=== PATIENT | female | born 1955 | race Two or more races ===

== ENCOUNTER 2017-10-27 10:35 | Inpatient (IN) | payer OTHER ==
[~2017-10-27] VITALS: Ht 157.5 cm; Wt 42.6 kg
[2017-11-07] MEDS ORDERED: MYAMBUTOL400 MG PO (10:37)
[2017-11-07] MEDS ORDERED: BENZONATATE100 MG PO (10:37)
[2017-11-07] MEDS ORDERED: ZITHROMAX500 MG PO (10:37)
[2017-11-07] MEDS ORDERED: RIFAMPIN300 MG PO (10:37)
[2017-11-07] MEDS ORDERED: XOPENEX0.63 MG/3 IH (10:37)
[2017-11-07] MEDS ORDERED: Tussi-Organidin Dm-S PO (10:37)
== END 2017-11-07 14:09 | disposition home or self-care (01) | DRG 871 ==
LOC: ER 10:35 → SURH 20:56
PROC: 3E0F7GC Introduction of Other Therapeutic Substance into Respiratory Tract, Via Natural or Artificial Opening (ICD-10-PCS; principal; 2017-10-27)
PROC: 8E0ZXY6 Isolation (ICD-10-PCS; 2017-10-27)
PROC: BB24ZZZ Computerized Tomography (CT Scan) of Bilateral Lungs (ICD-10-PCS; 2017-10-28)
PROC: B246ZZZ Ultrasonography of Right and Left Heart (ICD-10-PCS; 2017-11-05)
DX: A41.9 Sepsis, unspecified organism (principal); J09.X1 Influenza due to identified novel influenza A virus with pneumonia; J18.8 Other pneumonia, unspecified organism; J44.1 Chronic obstructive pulmonary disease with (acute) exacerbation; A31.0 Pulmonary mycobacterial infection; R09.02 Hypoxemia; I27.29 Other secondary pulmonary hypertension; Z85.3 Personal history of malignant neoplasm of breast

== ENCOUNTER 2017-11-16 13:15 | Inpatient (IN) | payer OTHER ==
[~2017-11-16] VITALS: Ht 152.4 cm; Wt 43.1 kg
[~2017-11-16 13:15] MED LIST: BENZONATATE100 MG PO; MYAMBUTOL400 MG PO; RIFAMPIN300 MG PO; Tussi-Organidin Dm-S PO; XOPENEX0.63 MG/3 IH; ZITHROMAX500 MG PO
[2017-11-19] MEDS ORDERED: SILTUSSIN DM C118 ML BC (14:34)
[2017-11-23] MEDS ORDERED: LEVAQUIN750 MG PO (11:20)
[2017-11-23] MEDS ORDERED: XOPENEX0.63 MG/3 IH (11:22)
== END 2017-11-23 14:29 | disposition home or self-care (01) | DRG 871 ==
LOC: ER 13:15 → ICU-2 16:17 → SEC-K 11-20 07:45 → SURH 11-20 11:20 → SEC-K 11-20 11:20 → MEDJ 11-20 15:23
PROC: 4A033R1 Measurement of Arterial Saturation, Peripheral, Percutaneous Approach (ICD-10-PCS; principal; 2017-11-16)
PROC: 3E0F7GC Introduction of Other Therapeutic Substance into Respiratory Tract, Via Natural or Artificial Opening (ICD-10-PCS; 2017-11-16)
PROC: 8E0ZXY6 Isolation (ICD-10-PCS; 2017-11-16)
PROC: 5A09457 Assistance with Respiratory Ventilation, 24-96 Consecutive Hours, Continuous Positive Airway Pressure (ICD-10-PCS; 2017-11-16)
PROC: 3E0336Z Introduction of Nutritional Substance into Peripheral Vein, Percutaneous Approach (ICD-10-PCS; 2017-11-17)
DX: A41.9 Sepsis, unspecified organism (principal); J16.8 Pneumonia due to other specified infectious organisms; J96.01 Acute respiratory failure with hypoxia; J44.1 Chronic obstructive pulmonary disease with (acute) exacerbation; B37.0 Candidal stomatitis; A31.0 Pulmonary mycobacterial infection; B96.5 Pseudomonas (aeruginosa) (mallei) (pseudomallei) as the cause of diseases classified elsewhere

== ENCOUNTER 2018-12-21 13:04 | Outpatient (CLI) | payer OTHER ==
[~2018-12-21 13:04] MED LIST changes: +LEVAQUIN750 MG PO; +SILTUSSIN DM C118 ML BC
== END 2018-12-21 13:18 | disposition home or self-care (01) ==
LOC: RAD 501 13:04
DX: M17.11 Unilateral primary osteoarthritis, right knee (principal); M17.12 Unilateral primary osteoarthritis, left knee; M16.11 Unilateral primary osteoarthritis, right hip; M16.12 Unilateral primary osteoarthritis, left hip

== ENCOUNTER 2021-03-02 13:03 | Outpatient (CLI) | payer OTHER | END 2021-03-02 13:04 | disposition home or self-care (01) | LOC: NUCLEAR 13:03 | PROVIDERS: ATTEND Internal Medicine Pulmonary Disease | DX: A31.9 Mycobacterial infection, unspecified (principal); J44.9 Chronic obstructive pulmonary disease, unspecified | CPT/HCPCS: 78802; A9556 ==

== ENCOUNTER 2023-06-11 18:29 | Inpatient (IN) | payer OTHER ==
[~2023-06-11] VITALS: Ht 157.5 cm; Wt 40.8 kg
[2023-06-14] MEDS ORDERED: STIOLTO RESPIMAT4 GM (08:25)
== END 2023-06-21 18:58 | disposition home or self-care (01) | DRG 190 ==
LOC: ER 18:29 → MEDJ 06-12 00:10
PROVIDERS: General Practice; ADMIT Internal Medicine; ATTEND Internal Medicine
PROC: BB24YZZ Computerized Tomography (CT Scan) of Bilateral Lungs using Other Contrast (ICD-10-PCS; 2023-06-11)
PROC: 8E0ZXY6 Isolation (ICD-10-PCS; principal; 2023-06-12)
PROC: 3E0F7GC Introduction of Other Therapeutic Substance into Respiratory Tract, Via Natural or Artificial Opening (ICD-10-PCS; 2023-06-12)
PROC: 3E0F7SF Introduction of Other Gas into Respiratory Tract, Via Natural or Artificial Opening (ICD-10-PCS; 2023-06-12)
DX: J44.1 Chronic obstructive pulmonary disease with (acute) exacerbation (principal); J18.9 Pneumonia, unspecified organism; A31.0 Pulmonary mycobacterial infection; R09.02 Hypoxemia; Z85.3 Personal history of malignant neoplasm of breast; Z87.891 Personal history of nicotine dependence

== ENCOUNTER 2023-10-24 20:40 | Inpatient (IN) | payer OTHER ==
[~2023-10-24] VITALS: Ht 157.5 cm; Wt 89.8 kg
[~2023-10-24 20:40] MED LIST changes: +STIOLTO RESPIMAT4 GM
[2023-10-24] MEDS ORDERED: STIOLTO RESPIMAT4 GM (22:20)
[2023-10-25 00:16] LABS: HEMATOCRIT 40.2 % (36.0-45.00); MEAN CELL VOLUME 92.9 fL (80.00-100.00); MEAN CORPUSCULAR HGB CONC 32.3 g/dl (32.0-36.0); PLATELET COUNT 420 K/uL (150-450); RED BLOOD COUNT 4.33 M/uL (4.00-6.00); RED CELL DISTRIBUTION WIDTH 15.2 % (11.5-14.5)
[2023-10-25 00:18] LABS: URINE BILIRRUBIN Negative (NEGATIVE); URINE BLOOD Negative; URINE COLOR Yellow; URINE GLUCOSE Negative (NEGATIVE); URINE LEUKOCYTE Small; URINE NITRATE Negative; URINE PROTEIN Trace (NEGATIVE)
[2023-10-25 00:22] LABS: URINE BACTERIA 23.9 uL (0.0-1933); URINE EPITHELIAL CELLS 6.1 uL (0.0-38.8); URINE RBC 6.4 uL (0.0-20.8); URINE WBC 47.1 uL (0.0-23.2)
[2023-10-25 00:31] LABS: URINE APPEARANCE CLOUDY
[2023-10-25 00:31] LABS: ABG PH 7.426 (7.35-7.45); ABG PO2 47.8 mmHg (80-100); ABG pCO2 57.3 mmHg (35-45); BASE EXCESS 10.1 mmol/l; BICARBONATE 36.9 mmol/l (23-25); SaO2 85.6 %; Tco2 38.6 mmol/l; allen test SATISFACTORY; o2 21 %; puncture site RADIAL RIGHT
[2023-10-25 00:33] LABS: INR 1.02; PROTHROMBIN TIME 10.7 SECONDS (9.0-11.5)
[2023-10-25 00:42] LABS: CALCIUM 8.6 mg/dL (8.5-10.1); GFR 132.17; POTASSIUM 3.84 mEq/L (3.5-5.1)
[2023-10-25 00:52] LABS: CREATININE SERUM 0.47 mg/dL (0.55-1.02)
[2023-10-25 12:49] LABS: ABG pCO2 65.4 mmHg (35-45)
[2023-10-25 12:50] LABS: ABG PO2 92.2 mmHg (80-100); BASE EXCESS 8.1 mmol/l; BICARBONATE 36.2 mmol/l (23-25); SaO2 96.9 %; Tco2 38.2 mmol/l
[2023-10-25 12:51] LABS: allen test SATISFACTORY; o2 30 %; puncture site RADIAL RIGHT
[2023-10-26 06:39] LABS: INR 0.98; PROTHROMBIN TIME 10.3 SECONDS (9.0-11.5)
[2023-10-26 06:40] LABS: PARTIAL THROMBOPLASTIN TIME < 20.0 SECONDS (22.0-34.0)
[2023-10-26 06:55] LABS: ALKALINE PHOSPHATASE 87 U/L (50-136); ALT/SGPT 32 U/L (12-78); ANION GAP 9 (10.0-20.0); AST/SGOT 22 U/L (15-37); BILIRUBIN TOTAL 0.24 mg/dL (0.3-1.2); BILIRUBIN,CONJUGATED < 0.10 mg/dL (0.0-0.2); BILIRUBIN,UNCONJUGATED 0.14 mg/dL (0.0-0.6); BLOOD UREA NITROGEN 25 mg/dL (7-18); BUN CREA RATIO 42 (7.0-25.0); CALCIUM 8.9 mg/dL (8.5-10.1); CARBON DIOXIDE 34 mEq/L (21-32); CHLORIDE 103 mmol/L (98-107); CHOL HDL RATIO 2.6 (0-5.0); CHOLESTEROL 244 mg/dL (0-200); CREATININE SERUM 0.59 mg/dL (0.55-1.02); GFR 101.67; GLUCOSE FASTING 132 mg/dL (65-100); HDL 95 mg/dl (40-60); LDL 135 mg/dl (0-130); OSMOLALITY SERUM 288 MOSM/KG (275-295); POTASSIUM 5.22 mEq/L (3.5-5.1); SODIUM 141 mmol/L (136-145); T4 FREE 0.88 NG/ML (0.76-1.46); TOTAL PROTEIN 6.8 gm/dL (6.4-8.2); TRIGLYCERIDES 71 mg/dL (0-150); TSH 0.541 uIU/mL (0.358-3.74); VLDL 14 (0-39)
[2023-10-26 06:58] LABS: C-REACTIVE PROTEIN 0.95 MG/DL (0.00-0.29)
[2023-10-26 11:38] LABS: HEMATOCRIT 43.7 % (36.0-45.00); HEMOGLOBIN 14.1 g/dL (12.0-15.00); MEAN CELL VOLUME 94.1 fL (80.00-100.00); MEAN CORPUSCULAR HEMOGLOBIN 30.5 pg (27.00-32.0); MEAN CORPUSCULAR HGB CONC 32.4 g/dl (32.0-36.0); PLATELET COUNT 384 K/uL (150-450); RED BLOOD COUNT 4.64 M/uL (4.00-6.00); RED CELL DISTRIBUTION WIDTH 15.1 % (11.5-14.5)
[2023-10-26 11:52] LABS: ERYTHROCYTE SEDIMENTATION RATE 37 mm/hr
[2023-10-26 14:21] LABS: PLATELET ESTIMATE NORMAL (NORMAL)
[2023-10-26] MEDS ORDERED: CLONAZEPAM0.5 M1 (14:21)
[2023-11-03] MEDS ORDERED: INTESTINEX680 M1 PO (09:22)
[2023-11-03] MEDS ORDERED: LASIX20 MG PO (09:23)
[2023-11-03] MEDS ORDERED: MEDROLPACK PO (09:24)
== END 2023-11-03 19:43 | disposition home or self-care (01) | DRG 191 ==
LOC: ER 20:40 → SEC-K 10-25 08:47 → MEDJ 10-25 08:47
PROVIDERS: General Practice; ADMIT Internal Medicine; ATTEND Internal Medicine
PROC: BW24ZZZ Computerized Tomography (CT Scan) of Chest and Abdomen (ICD-10-PCS; principal; 2023-10-25)
PROC: B54DZZZ Ultrasonography of Bilateral Lower Extremity Veins (ICD-10-PCS; 2023-10-26)
PROC: B24BYZZ Ultrasonography of Heart with Aorta using Other Contrast (ICD-10-PCS; 2023-10-26)
DX: J44.1 Chronic obstructive pulmonary disease with (acute) exacerbation (principal); J47.1 Bronchiectasis with (acute) exacerbation; R78.81 Bacteremia; J96.10 Chronic respiratory failure, unspecified whether with hypoxia or hypercapnia; B96.5 Pseudomonas (aeruginosa) (mallei) (pseudomallei) as the cause of diseases classified elsewhere; Z08 Encounter for follow-up examination after completed treatment for malignant neoplasm; Z85.3 Personal history of malignant neoplasm of breast

== ENCOUNTER 2024-01-18 19:37 | Inpatient (IN) | payer OTHER ==
[~2024-01-18] VITALS: Ht 152.4 cm; Wt 36.3 kg
[~2024-01-18 19:37] MED LIST changes: +CLONAZEPAM0.5 M1; +INTESTINEX680 M1 PO; +LASIX20 MG PO; +MEDROLPACK PO
[2024-01-18] MEDS ORDERED: LEVALBUTEROL HCL 0.63 MG/3 ML SOLUTION IH SCH (20:30)
[2024-01-18 20:44] LABS: HEMATOCRIT 45.3 % (36.0-45.00); HEMOGLOBIN 15.1 g/dL (12.0-15.00); MEAN CELL VOLUME 92.7 fL (80.00-100.00); MEAN CORPUSCULAR HEMOGLOBIN 30.9 pg (27.00-32.0); MEAN CORPUSCULAR HGB CONC 33.4 g/dl (32.0-36.0); PLATELET COUNT 405 K/uL (150-450); RED BLOOD COUNT 4.89 M/uL (4.00-6.00); RED CELL DISTRIBUTION WIDTH 13.8 % (11.5-14.5)
[2024-01-18 21:03] LABS: ABG PH 7.438 (7.35-7.45); ABG pCO2 46.6 mmHg (35-45)
[2024-01-18 21:04] LABS: ABG PO2 42.2 mmHg (80-100); BASE EXCESS 5.6 mmol/l; BICARBONATE 30.8 mmol/l (23-25); Tco2 32.2 mmol/l; allen test SATISFACTORY; o2 21 %; puncture site RADIAL RIGHT
[2024-01-18 21:06] LABS: SaO2 80.5 %
[2024-01-18 21:08] LABS: ALBUMIN 3.7 gm/dL (3.4-5.0); BILIRUBIN TOTAL 0.44 mg/dL (0.3-1.2); CALCIUM 9.2 mg/dL (8.5-10.1); CREATININE SERUM 0.88 mg/dL (0.55-1.02); GFR 64.09; GLOBULINA 4.4 G/DL (2.4-3.5); POTASSIUM 4.58 mEq/L (3.5-5.1); TOTAL PROTEIN 8.1 gm/dL (6.4-8.2)
[2024-01-19] MEDS ORDERED: LEVALBUTEROL HCL 0.63 MG/3 ML SOLUTION IH SCH ×2 (01:00→05:00)
[2024-01-19 01:45] LABS: ABG PH 7.422 (7.35-7.45); ABG pCO2 47.9 mmHg (35-45); BICARBONATE 30.5 mmol/l (23-25); SaO2 92.2 %; allen test SATISFACTORY; puncture site RADIAL LEFT
[2024-01-19 01:46] LABS: o2 28 %
[2024-01-19] MEDS ORDERED: AZITHROMYCIN 500 MG in 0.9 % SODIUM CHLORIDE 250 ML IV SCH (03:24)
[2024-01-19] MEDS ORDERED: METHYLPREDNISOLONE SOD SUCC 40 MG VIAL IV SCH (03:24)
[2024-01-19] MEDS ORDERED: PANTOPRAZOLE SODIUM 40 MG TABLET.DR PO SCH (03:25)
[2024-01-19] MEDS ORDERED: ENOXAPARIN SODIUM 40 MG/0.4 ML SYRINGE SUBCUTANEO SCH (09:00)
[2024-01-19] MEDS ORDERED: CLONAZEPAM 0.5 MG TABLET PO SCH (21:00)
[2024-01-19] MEDS ORDERED: FAMOTIDINE/PF 20 MG in 0.9 % SODIUM CHLORIDE 100 ML IV SCH (21:00)
[2024-01-19] MEDS ORDERED: MELATONIN 5 MG TABLET PO SCH (21:00)
[2024-01-19] MEDS ORDERED: hydrOXYzine PAMOATE 25 MG CAPSULE PO SCH (21:00)
[2024-01-20 06:25] LABS: INR 1.02; PARTIAL THROMBOPLASTIN TIME 26.7 SECONDS (22.0-34.0); PROTHROMBIN TIME 10.7 SECONDS (9.0-11.5)
[2024-01-20 06:34] LABS: HEMATOCRIT 40.8 % (36.0-45.00); HEMOGLOBIN 13.5 g/dL (12.0-15.00); MEAN CELL VOLUME 92.6 fL (80.00-100.00); MEAN CORPUSCULAR HEMOGLOBIN 30.6 pg (27.00-32.0); PLATELET COUNT 383 K/uL (150-450)
[2024-01-20 08:39] LABS: ERYTHROCYTE SEDIMENTATION RATE 44 mm/hr
[2024-01-20 08:49] LABS: ALBUMIN 2.8 gm/dL (3.4-5.0); ALKALINE PHOSPHATASE 89 U/L (50-136); ALT/SGPT 29 U/L (12-78); ANION GAP 6 (10.0-20.0); AST/SGOT 20 U/L (15-37); BILIRUBIN TOTAL 0.22 mg/dL (0.3-1.2); BILIRUBIN,CONJUGATED < 0.10 mg/dL (0.0-0.2); BILIRUBIN,UNCONJUGATED 0.12 mg/dL (0.0-0.6); BLOOD UREA NITROGEN 24 mg/dL (7-18); BUN CREA RATIO 39 (7.0-25.0); CALCIUM 8.6 mg/dL (8.5-10.1); CARBON DIOXIDE 36 mEq/L (21-32); CHLORIDE 103 mmol/L (98-107); CHOL HDL RATIO 2.9 (0-5.0); CHOLESTEROL 208 mg/dL (0-200); CREATININE SERUM 0.62 mg/dL (0.55-1.02); GFR 96.01; GLUCOSE FASTING 114 mg/dL (65-100); HDL 72 mg/dl (40-60); LDL 123 mg/dl (0-130); OSMOLALITY SERUM 284 MOSM/KG (275-295); POTASSIUM 4.98 mEq/L (3.5-5.1); SODIUM 140 mmol/L (136-145); T4 FREE 1.01 NG/ML (0.76-1.46); TOTAL PROTEIN 6.1 gm/dL (6.4-8.2); TRIGLYCERIDES 64 mg/dL (0-150); TSH 0.455 uIU/mL (0.358-3.74); VLDL 12 (0-39)
[2024-01-20] MEDS ORDERED: AZITHROMYCIN 500 MG in 0.9 % SODIUM CHLORIDE 250 ML IV SCH (09:00)
[2024-01-20 09:02] LABS: AMYLASE 16 U/L (25-115); C-REACTIVE PROTEIN 0.77 MG/DL (0.00-0.29)
[2024-01-20] MEDS ORDERED: LEVALBUTEROL HCL 0.63 MG/3 ML SOLUTION IH SCH (13:00)
[2024-01-20] MEDS ORDERED: METHYLPREDNISOLONE SOD SUCC 40 MG VIAL IV SCH (17:00)
[2024-01-20] MEDS ORDERED: LEVALBUTEROL HCL 1.25 MG/3 ML SOLUTION IH SCH (17:00)
[2024-01-20] MEDS ORDERED: MEROPENEM 500 MG/VIAL VIAL IV SCH (18:00)
[2024-01-20 18:17] LABS: PH,URINE 5.5 (5.0-8.0); URINE BILIRRUBIN Negative (NEGATIVE); URINE BLOOD Negative; URINE COLOR Yellow; URINE GLUCOSE Negative (NEGATIVE); URINE LEUKOCYTE Negative; URINE NITRATE Negative; URINE PROTEIN Negative (NEGATIVE); URINE UROBILINOGEN 0.2 E.U./dl
[2024-01-20 18:18] LABS: URINE EPITHELIAL CELLS 3.4 uL (0.0-38.8); URINE WBC 2.6 uL (0.0-23.2)
[2024-01-20 18:45] LABS: URINE APPEARANCE CLEAR; URINE BACTERIA 3.7 uL (0.0-1933); URINE RBC 1.2 uL (0.0-20.8)
[2024-01-21] MEDS ORDERED: DOXYCYCLINE HYCLATE 100 MG CAPSULE PO SCH (09:00)
[2024-01-21 10:18] LABS: HEMATOCRIT 39.9 % (36.0-45.00); MEAN CELL VOLUME 92.9 fL (80.00-100.00); MEAN CORPUSCULAR HEMOGLOBIN 30.3 pg (27.00-32.0); MEAN CORPUSCULAR HGB CONC 32.6 g/dl (32.0-36.0); PLATELET COUNT 372 K/uL (150-450); RED BLOOD COUNT 4.29 M/uL (4.00-6.00)
[2024-01-21 10:39] LABS: ALBUMIN 3.2 gm/dL (3.4-5.0); BILIRUBIN TOTAL 0.31 mg/dL (0.3-1.2); CALCIUM 9.4 mg/dL (8.5-10.1); CREATININE SERUM 0.54 mg/dL (0.55-1.02); GFR 112.61; GLOBULINA 3.5 G/DL (2.4-3.5); POTASSIUM 4.59 mEq/L (3.5-5.1); TOTAL PROTEIN 6.7 gm/dL (6.4-8.2)
[2024-01-21 10:47] LABS: C-REACTIVE PROTEIN 0.35 MG/DL (0.00-0.29)
[2024-01-24] MEDS ORDERED: METHYLPREDNISOLONE SOD SUCC 40 MG VIAL IV SCH (17:00)
[2024-01-26 07:35] LABS: HEMATOCRIT 38.2 % (36.0-45.00); HEMOGLOBIN 12.8 g/dL (12.0-15.00); MEAN CELL VOLUME 91.2 fL (80.00-100.00); MEAN CORPUSCULAR HEMOGLOBIN 30.6 pg (27.00-32.0); MEAN CORPUSCULAR HGB CONC 33.5 g/dl (32.0-36.0); PLATELET COUNT 337 K/uL (150-450); RED BLOOD COUNT 4.19 M/uL (4.00-6.00); RED CELL DISTRIBUTION WIDTH 13.5 % (11.5-14.5)
[2024-01-26 07:53] LABS: ERYTHROCYTE SEDIMENTATION RATE 9 mm/hr
[2024-01-26 08:09] LABS: ALBUMIN 2.8 gm/dL (3.4-5.0); BILIRUBIN TOTAL 0.32 mg/dL (0.3-1.2); CALCIUM 8.6 mg/dL (8.5-10.1); CREATININE SERUM 0.74 mg/dL (0.55-1.02); GFR 78.28; GLOBULINA 3.2 G/DL (2.4-3.5); MAGNESIUM 2.1 mg/dL (1.8-2.4); PHOSPHOROUS 3.4 mg/dL (2.5-4.9); POTASSIUM 4.6 mEq/L (3.5-5.1)
[2024-01-26 08:19] LABS: C-REACTIVE PROTEIN 0.44 MG/DL (0.00-0.29)
[2024-01-26] MEDS ORDERED: AMINO ACIDS 1 EACH TABLET PO SCH (13:00)
[2024-01-28] MEDS ORDERED: METHYLPREDNISOLONE SOD SUCC 40 MG VIAL IV SCH (09:00)
[2024-01-28] MEDS ORDERED: MEROPENEM 500 MG/VIAL VIAL IV SCH (12:00)
[2024-01-30 08:02] LABS: HEMATOCRIT 38.1 % (36.0-45.00); HEMOGLOBIN 12.6 g/dL (12.0-15.00); MEAN CELL VOLUME 93.3 fL (80.00-100.00); MEAN CORPUSCULAR HEMOGLOBIN 30.8 pg (27.00-32.0); PLATELET COUNT 299 K/uL (150-450); RED BLOOD COUNT 4.09 M/uL (4.00-6.00)
[2024-01-30 08:28] LABS: ALBUMIN 2.9 gm/dL (3.4-5.0); BILIRUBIN TOTAL 0.44 mg/dL (0.3-1.2); CALCIUM 8.7 mg/dL (8.5-10.1); CREATININE SERUM 0.49 mg/dL (0.55-1.02); GFR 125.97; GLOBULINA 3.1 G/DL (2.4-3.5); MAGNESIUM 2.1 mg/dL (1.8-2.4); POTASSIUM 4.55 mEq/L (3.5-5.1)
[2024-01-30] MEDS ORDERED: MEROPENEM 500 MG/VIAL VIAL IV SCH (17:00)
[2024-01-31 06:52] LABS: ABG PH 7.411 (7.35-7.45); ABG PO2 77.4 mmHg (80-100); ABG pCO2 55.6 mmHg (35-45); SaO2 95.7 %
[2024-01-31 06:53] LABS: BICARBONATE 34.6 mmol/l (23-25); Tco2 36.3 mmol/l; allen test SATISFACTORY; o2 21 %; puncture site RADIAL LEFT
[2024-01-31] MEDS ORDERED: FAMOTIDINE/PF 20 MG in 0.9 % SODIUM CHLORIDE 8 ML IV PUSH ONE (08:30)
[2024-01-31] MEDS ORDERED: XOPENEX HFA15 GM IH (08:30)
[2024-01-31] MEDS ORDERED: PEPCID AC20 MG PO (08:31)
[2024-01-31] MEDS ORDERED: PROTONIX40 MG PO (08:31)
[2024-01-31] MEDS ORDERED: CARAFATE1 GM PO (08:32)
[2024-01-31] MEDS ORDERED: RAYOS5 MG PO (08:33)
[2024-01-31] MEDS ORDERED: CLONAZEPAM0.5 M1 PO (08:37)
[2024-01-31] MEDS ORDERED: METHYLPREDNISOLONE SOD SUCC 40 MG VIAL IV SCH (09:00)
== END 2024-01-31 13:51 | disposition home or self-care (01) | DRG 190 ==
LOC: ER 19:38 → MEDI 01-19 03:27 → MEDJ 01-19 03:27 → SEC-K 01-19 08:21 → MEDJ 01-19 11:52 → SURH 01-23 19:37
PROVIDERS: Emergency Medicine; Internal Medicine; Student in an Organized Health Care Education/Training Program; ADMIT Internal Medicine; ATTEND Internal Medicine
PROC: BW24ZZZ Computerized Tomography (CT Scan) of Chest and Abdomen (ICD-10-PCS; principal; 2024-01-19)
PROC: 4A12X4Z Monitoring of Cardiac Electrical Activity, External Approach (ICD-10-PCS; 2024-01-19)
DX: J47.1 Bronchiectasis with (acute) exacerbation (principal); J96.21 Acute and chronic respiratory failure with hypoxia; J96.22 Acute and chronic respiratory failure with hypercapnia; J44.1 Chronic obstructive pulmonary disease with (acute) exacerbation; A31.2 Disseminated mycobacterium avium-intracellulare complex (DMAC); Z99.81 Dependence on supplemental oxygen; Z87.891 Personal history of nicotine dependence; Z20.822 Contact with and (suspected) exposure to COVID-19